=== PATIENT | female | born 1960 | race Caucasian/White ===

== ENCOUNTER 2020-04-01 10:33 | Emergency (ER) | payer MEDICARE, MEDICAID, SELFPAY ==
[2020-04-01 10:48] VITALS: BP 147/74; PULSE 79; RESP 20; TEMP 36.8; O2SAT 100
--- NOTE | 2020-04-01 11:09 | ED.FEMALEGU ---
HPI - Female Genitourinary General Chief complaint: Urogenital-Female Stated complaint: Urinating Blood Time Seen by Provider: 04/01/20 11:02 Source: patient and RN notes reviewed Mode of arrival: ambulatory Limitations: no limitations History of Present Illness HPI Narrative: Patient presents today complaining of hematuria, lower abdominal pressure, mild dysuria and urinary frequency since this morning. No symptoms yesterday. She has tried no roam-hek-jhwwmcz interventions prior to arrival. Denies any recent antibiotic use. Denies flank pain, nausea, vomiting, diarrhea, fever. Related Data Home Medications Medication Instructions Recorded Confirmed albuterol sulfate [Ventolin HFA] 2 inh INHALATION DIRECTED 04/01/20 04/01/20 famotidine 40 mg PO DAILY 04/01/20 04/01/20 ucdynysqmfn-rlymxcopj-gkwcfcej 1 inh INHALATION DAILY 04/01/20 04/01/20 [Trelegy Ellipta] valsartan-hydrochlorothiazide 1 tablet PO DAILY 04/01/20 04/01/20 Allergies Allergy/AdvReac Type Severity Reaction Status Date / Time morphine Allergy Mild Other Verified 04/01/20 10:35 aspirin Allergy Unknown RASH Verified 03/07/17 16:02 BETWEEN FINGERS Review of Systems Review of Systems: Narrative: CONSTITUTIONAL: Denies body aches, fever, chills, or sweats. EYES: Denies visual changes, redness, or discharge. ENT: Denies rhinorrhea, congestion, sore throat, or otalgia. CARDIOVASCULAR: Denies chest pain, palpitations, or edema. RESPIRATORY: Denies cough or dyspnea. GASTROINTESTINAL: Denies abdominal pain, nausea, vomiting, or diarrhea. GENITOURINARY: + Hematuria, mild dysuria, frequency, lower abdominal pressure SKIN: Denies rash, itching, or wounds. MUSCULOSKELETAL: Denies back pain, joint pain, or myalgia. NEUROLOGIC: Denies headache, numbness, tingling, or weakness. PSYCH: Denies depression or anxiety. [facility] Past Medical History Medical History (Updated 04/01/20 @ 11:12 by Lenore Perry, SURTASS ANALYST, ) COPD (chronic obstructive pulmonary disease) GERD (gastroesophageal reflux disease) Comments At time of signature, I have reviewed and agree with nursing past medical, surgical, social and family history unless otherwise noted. Please see nursing chart for further information. There is no relevant family history pertinent to the presenting complaint Exam Narrative: Exam Narrative: GENERAL: Well-appearing, well-nourished, and in no acute distress. HEAD: Normocephalic, atraumatic. EYES: EOMI. No redness or drainage. Conjunctivae normal. ENT: Mucous membranes pink and moist. NECK: Normal AROM. CHEST: No respiratory distress. Clear to auscultation. HEART: Regular rate and rhythm. No murmur appreciated. Normal peripheral pulses. ABDOMEN: Soft, nontender, nondistended, normal active bowel sounds. -CVAT MUSCULOSKELETAL: No bony tenderness. EXTREMITIES: Normal range of motion. No edema. SKIN: Warm, dry, no rash. Capillary refill normal. Normal skin turgor. NEURO: No focal deficits. Alert and oriented x3. Gait steady. PSYCH: Normal affect. No signs of depression or anxiety. Course Vital Signs Vital signs: Vital Signs Temperature 98.2 F 04/01/20 10:48 Pulse Rate 79 04/01/20 10:48 Respiratory Rate 20 04/01/20 10:48 Blood Pressure 147/74 H 04/01/20 10:48 Pulse Oximetry 100 04/01/20 10:48 Temperature 98.2 F 04/01/20 10:48 Pulse Rate 79 04/01/20 10:48 Respiratory Rate 20 04/01/20 10:48 Blood Pressure 147/74 H 04/01/20 10:48 Pulse Oximetry 100 04/01/20 10:48 Reviewed. Pt has been instructed to follow up with her PCP regarding her elevated blood pressure today. MDM - Female Genitourinary Differential Diagnosis Differential diagnosis: Likely urinary tract infection, cystitis and other (Pyelonephritis, interstitial cystitis, kidney stone) Lab Data Attestation: I reviewed the patient's lab results. Labs: Urine Glucose Negative Refer
== END 2020-04-01 11:14 | disposition home or self-care (01) ==
PROVIDERS: Emergency Provider Nurse Practitioner
DX: N30.01 Acute cystitis with hematuria (principal); J44.9 Chronic obstructive pulmonary disease, unspecified; K21.9 Gastro-esophageal reflux disease without esophagitis
CPT/HCPCS: 81003; 87086; 87088; 99213; G0463

== ENCOUNTER 2022-02-28 08:36 | Observation (INO) | payer MEDICARE, MEDICAID, SELFPAY ==
[2022-02-28] VITALS (27 sets, daily range): BP systolic 102–136; BP diastolic 50–79; PULSE 71–98; RESP 14–24; TEMP 36.2–36.9; O2SAT 81–100; BMI 31.0
--- NOTE | ~2022-02-28 | CT_ITS ---
EXAMINATION: CT abdomen pelvis w con DATE: 02/28/2022 11:40 INDICATION: Right lower quadrant abdominal pain and tenderness TECHNIQUE: Computed tomography (CT) of the abdomen and pelvis was performed with 100 mL Omnipaque-350 intravenous contrast. Automated exposure control and iterative reconstruction technique were employe d. The dose-length product was 688.81 mGy-cm. COMPARISON: None FINDINGS: Lung bases are clear. Heart size is normal. No pericardial or pleural effusion. Cholecystectomy clips the gallbladder fossa. Several small cysts in the left hepatic lobe measuring up to 1.5 cm . Spleen, pancreas and bilateral adrenal glands are normal. Bilateral renal cysts, the largest on the left birgit suring 2.5 cm . Subtle haziness to the fat surrounding the mildly dilated appendix which measures up to 11 mm diameter with edematous-appearing wall thickening consistent with acute appendicitis. Single diverticulum along the descending colon without adjacent inflammatory change to suggest diverticulit is. No bowel obstruction. Bladder, anteverted uterus and lateral adnexa are unremarkable. No abscess or free intraperitoneal gas or fluid. No pathologically enlarged abdominal or pelvic lymphadenopathy. Small fat-containing umbilical hernia. Mild thoracic and lumbar spondylosis. Moderate bilateral hip osteoarthritis. IMPRESSION: 1. Radiographically uncomplicated acute appendicitis. Dr. Escalera discussed these findings with Dr. Huerta at 11:55 AM. Reviewed, dictated and finalized at location B. IMPRESSION: 1. Radiographically uncomplicated acute appendicitis. Dr. Escalera discussed th benito findings with Dr. Huerta at 11:55 AM.
--- NOTE | ~2022-02-28 | XR_ITS ---
EXAMINATION: XR chest 2V DATE: 02/28/2022 15:17 INDICATION: Chronic obstructive pulmonary disease. TECHNIQUE: Frontal and lateral views of the chest were obtained. COMPARISON: Chest 2 views 03/07/2017, CT abdomen and pelvis 02/28/2022 FINDINGS: The chest demonstrates clear lungs without pneumonia, pleural effusion, or pneumothorax. Th e heart size is normal. Surgical clips in the right upper quadrant are likely from cholecystectomy. IMPRESSION: 1. No acute cardiopulmonary disease. Reviewed, dictated and finalized at location A.
--- NOTE | 2022-02-28 09:45 | ED.ABDPAIN ---
HPI - Abdominal Pain General Chief Complaint: Abdominal Pain Stated Complaint: abd pain Time Seen by Provider: 02/28/22 08:49 History of Present Illness HPI narrative: 61-year-old female presented to the emergency department for evaluation of persistent right lower abdominal pain. Patient states over the weekend she was having some issues with constipation. Patient states on Thursday or Thursday she began passing stool again but states that she is still having some lower abdominal pain. Patient states that the pain is slowly improving but is still persistent. Patient called her primary care physician and she was instructed to present to the emergency department for evaluation. Patient denies any pain with urination. Patient does have previous surgical history of hernia repair, and ovarian cyst removal. Patient denies any prior history of small bowel obstruction. Patient did have COVID about 7 weeks ago and has had multiple issues with constipation since. Patient has no prior history of [place]. patient does have history of COPD and hypertension. Patient does take Plavix. Patient states she is no longer taking antibiotics. Patient had an oxygen requirement for short period time after her COVID diagnosis. Patient is not on home oxygen at this time. Related Data Home Medications Medication Instructions Recorded Confirmed albuterol sulfate 90 mcg/actuation 2 inh inhalation DIRECTED 04/01/20 04/01/20 aerosol inhaler (Ventolin HFA) famotidine 40 mg tablet 40 mg PO DAILY 04/01/20 04/01/20 fluticasone fur. 100 mcg-umeclid 1 inh inhalation DAILY 04/01/20 04/01/20 62.5 mcg-vilant 25 mcg inhalat.powder (Trelegy Ellipta) valsartan 80 1 tablet PO DAILY 04/01/20 04/01/20 mg-hydrochlorothiazide 12.5 mg tablet Allergies Allergy/AdvReac Type Severity Reaction Status Date / Time morphine Allergy Mild Other Verified 04/01/20 10:35 aspirin Allergy Unknown RASH Verified 03/07/17 16:02 BETWEEN FINGERS Review of Systems Review of Systems: CONSTITUTIONAL: Denies fever, chills, or sweats. EYES: Denies visual changes, redness, or discharge. ENT: Denies rhinorrhea, congestion, sore throat, or otalgia. CARDIOVASCULAR: Denies chest pain, palpitations, or edema. RESPIRATORY: Denies cough or dyspnea. GASTROINTESTINAL: Right lower quadrant abdominal pain, see HPI GENITOURINARY: Denies dysuria or hematuria. SKIN: Denies rash or itching. MUSCULOSKELETAL: Denies back pain, joint pain, or myalgia. NEUROLOGIC: Denies headache, numbness, or weakness. 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 HEAD: normocephalic, atraumatic. EYES: PERRLA/EOMI, conjunctivae clear. NOSE: Normal no drainage NECK: Supple. No adenopathy, no masses. RESPIRATORY: Airway patent, respirations nonlabored. Clear to auscultation bilaterally, no rales, rhonchi, wheezing. CARDIOVASCULAR: Regular rate and rhythm without murmurs rubs or gallops. ABDOMINAL: Right lower quadrant tenderness to palpation MUSCULOSKELETAL: Moves all extremities. Strength/ROM intact, No edema, No calf tenderness. NEURO: Alert. Cranial nerves II through XII intac
[2022-02-28 10:40] LABS: Basophils Absolute Auto 0.1 K/mm3 (0.0-0.1); Basophils Percent Auto 0.5 % (0.2-1.2); Eosinophils Absolute Auto 0.2 K/mm3 (0-0.3); Eosinophils Percent Auto 2.2 % (0-4.4); Hematocrit 34.4 % (37.0-47.0); Hemoglobin 11.3 g/dL (12.0-15.0); Immature Granulocyte Absolute 0.06 K/mm3 (0.00-0.031); Immature Granulocyte Percent A 0.5 % (0-0.5); Lymphocytes Absolute Auto 1.53 K/mm3 (0.9-3.2); Lymphocytes Percent Auto 13.8 % (18.3-44.2); Mean Corpuscular HGB Conc 32.8 g/dl (32-36); Mean Corpuscular Hemoglobin 31.4 pg (26-34); Mean Corpuscular Volume 95.6 fl (80-100); Mean Platelet Volume 9.6 fl (7.4-10.4); Monocytes Absolute Auto 0.9 K/mm3 (0.1-0.6); Monocytes Percent Auto 7.9 % (2.6-8.5); Neutrophils Absolute Auto 8.3 K/mm3 (1.3-6.7); Neutrophils Percent Auto 75.1 % (45.5-73.1); Platelet Count Result 362 k/mm3 (150-375); Red Cell Distribution Width 14.4 % (11.5-14.5); White Blood Count 11.1 K/mm3 (4.5-10.0)
[2022-02-28 10:50] LABS: Lactic Acid Reflex 0.8 mmol/L (0.7-2.0)
[2022-02-28 10:51] LABS: Alanine Aminotransferase 21 U/L (6-35); Albumin Level 3.8 g/dL (3.5-5.1); Alkaline Phosphatase 115 U/L (38-126); Anion Gap 10 mmol/L (8-16); Aspartate Amino Transferase 26 U/L (14-36); Bilirubin,Total 0.3 mg/dL (0.2-1.3); Blood Urea Nitrogen 18 mg/dL (7-17); Carbon Dioxide 27 mmol/L (22-30); Chloride 99 mmol/L (98-107); Estimated CRCL calculation 53 ml/min; Estimated Glomerular Filt Rate 56; Glucose 97 mg/dL (65-110); Lipase 52 U/L (23-300); Potassium 4.1 mmol/L (3.4-5.0); Sodium 136 mmol/L (137-145)
[2022-02-28 13:05] LABS: Add Urine Microscopic? YES; Appearance Urine Clear (Clear); Bacteria Urine Trace /hpf; Bilirubin Urine Negative (Negative); Blood Urine 1+ (Negative); Color Urine Yellow (Yellow); Glucose Urine UA Negative (Negative); Ketones Urine Negative (Negative); Leukocyte Esterase Ur Negative LEU/UL (Negative); Mucus Urine Rare /lpf; Nitrate Urine Negative (Negative); Protein Urine Negative (Negative); RBC Urine 0-2 /hpf (0-2); Specific Grav Ur 1.009 (1.001-1.035); Squamous Epithelial Cell Urine Occasional /hpf (Few); Urobilinogen Urine Negative mg/dL (<2.0); WBC Urine 0-3 /hpf
--- NOTE | 2022-02-28 14:13 | ECG_ITS ---
Measurements Intervals [place] Rate: 72 P: 148 ID: 131 QRS: 14 QRSD: 134 T: 94 QT: 382 QTc: 421 Interpretive Statements SINUS RHYTHM BASELINE ARTIFACT RIGHT BUNDLE BRANCH BLOCK NONSPECIFIC ST ABNORMALITY ABNORMAL ECG NO PREVIOUS ECG AVAILABLE FOR COMPARISON Electronically Signed On 03-01-2022 15:05:40 CDT by Nicholas Hanna M.D.
--- NOTE | 2022-02-28 14:21 | PM.IMHP ---
H&P: HPI History of Present Illness Date/Time: 02/28/22 14:21 Chief Complaint: right lower quadrant abdominal pain Narrative: this patient is a pleasant 61-year-old white female who has a history of smoking, COPD on inhalers, coronary artery disease on Plavix, and mild hypertension. She has had a slow onset of lower abdominal pain. She has had on and off problems with constipation ever since she had COVID about 7 weeks ago. Because she was continued to have some lower abdominal pain even after having several days of normal bowel movements over the last 3 days she called her primary care physician. After hearing her symptoms they asked her to go to the emergency room and she was evaluated in our emergency room today by Dr. Huerta. Because of some tenderness in the right lower quadrant CT scan was done. This revealed acute uncomplicated appendicitis. Also noted was a very small umbilical hernia (which I cannot feel on exam). Also some liver and kidney cysts. See plan below. Review of Systems Review of Systems: All systems reviewed & are unremarkable except as noted in HPI and below (HPI) Constitutional: Constitutional: Reports as per HPI, Denies chills and Denies fever(s) Eyes: Eyes: Reports no additional eye complaints ENT: Reports Normal hearing present and Denies dizziness Cardiovascular: Cardiovascular: Reports no additional cardiovascular complaints, Denies chest pain and Denies irregular heart rhythm Comments: patient has a history of mild hypertension well controlled on the valsartan hydrochlorothiazide. Patient apparently has seen a back feeder plywood layup line at the [facility] in [place] and was started on Plavix about 2 years ago after having an evaluation possibly a chest her cardiac CT that showed some plaque at [facility]. Respiratory: Respiratory: Reports no additional respiratory complaints and Reports cough ( Patient has a chronic cough associated with her COPD. ) Comments: Patient is still smoking about 6 cigarettes per day. Gastrointestinal: Gastrointestinal: Reports no additional gastrointestinal complaints, Denies abdominal pain and Denies bloating Comments: her cough may be a little bit worse since she had COVID 7 weeks ago. Patient typically uses trilogy and took it this morning. She also has 2 p.r.n. inhalers 1 is I think an albuterol inhaler at home and then also another rescue inhaler that she uses p.r.n. Genitourinary: Genitourinary: Denies hematuria Comments: History of UR tract infection 2 years ago but it has not been on any antibiotic recently for that and is not having any urinary tract symptoms at the current time. Musculoskeletal: Musculoskeletal: Denies back pain Integumentary/Breasts: Skin/Breast: Reports system reviewed and no additional complaints, except as docu Neurologic: Reports Normal hearing present, Denies Abnormal speech present, Denies confusion and Denies dizziness Psychiatric: Psychiatric: Reports no additional psychiatric complaints and Denies confusion Endocrine: Endocrine: Reports no additional endocrine complaints Hematologic/Lymphatic: Hematologic/Lymphatic: Denies easy bleeding and Denies easy bruising Allergic/Immunologic: Allergic/Immunologic: Reports no additional allergic/immunologic complaints [facility] Past Medical History Medical History COPD (chronic obstructive pulmonary disease) COPD (chronic obstructive pulmonary disease) GERD (gastroesophageal reflux disease) Hypertension Smoker unmotivated to quit Surgical History Surgical History (Updated 02/28/22 @ 14:29 by Tapan Willson MD) History of section in the History of ovarian cystectomy open Pfannenstiel incision for this in the Hx of cholecystectomy open in 1987 Social History Social History (Updated 02/28/22 @ 14:30 by Tapan Willson MD) Social History: 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
--- NOTE | 2022-02-28 14:52 | PM.IMHP ---
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 100 mcg-umeclid 1 inh inhalation DAILY 04/01/20 04/01/20 History 62.5 mcg-vilant 25 mcg inhalat.powder (Trelegy Ellipta) nitrofurantoin 100 mg PO Q12H 7 days #14 caps 04/01/20 Rx monohydrate/macrocrystals 100 mg capsule (Macrobid) valsartan 80 1 tablet PO DAILY 04/01/20 04/01/20 History mg-hydrochlorothiazide 12.5 mg tablet Allergies Allergy/AdvReac Type Severity Reaction Status Date / Time morphine Allergy Mild Other Verified 04/01/20 10:35 aspirin Allergy Unknown RASH Verified 03/07/17 16:02 BETWEEN FINGERS Vital Signs Vital Signs - 24 hr 02/28/22 08:58 02/28/22 08:58 02/28/22 08:59 Temperature 36.7 C Pulse Rate 71 Respiratory Rate 14 Blood Pressure 102/68 116/53 L Pulse Oximetry 100 100 100 02/28/22 09:00 02/28/22 09:15 02/28/22 09:16 Temperature Pulse Rate Respiratory Rate Blood Pressure 108/79 Pulse Oximetry 100 99 99 02/28/22 09:17 02/28/22 09:30 02/28/22 09:32 Temperature Pulse Rate Respiratory Rate Blood Pressure 115/50 L Pulse Oximetry 99 98 99 02/28/22 09:45 02/28/22 09:47 02/28/22 10:01 Temperature Pulse Rate Respiratory Rate Blood Pressure 110/57 L Pulse Oximetry 100 100 81 L 02/28/22 10:15 02/28/22 10:30 02/28/22 10:45 Temperature Pulse Rate Respiratory Rate Blood Pressure Pulse Oximetry 95 99 100 02/28/22 11:00 02/28/22 11:15 02/28/22 11:44 Temperature Pulse Rate Respiratory Rate Blood Pressure Pulse Oximetry 96 100 100 02/28/22 11:45 Temperature Pulse Rate 84 Respiratory Rate Blood Pressure 127/66 Pulse Oximetry 100 H&P: Results Labs Labs: Short CBC 02/28/22 Range/Units 10:32 WBC 11.1 H (4.5-10.0) K/mm3 Hgb 11.3 L (12.0-15.0) g/dL Hct 34.4 L (37.0-47.0) % Plt Count 362 (150-375) k/mm3 BMP 02/28/22 10:32 Sodium 136 L Potassium 4.1 Chloride 99 Carbon Dioxide 27 BUN 18 H Creatinine 1.00 Glucose 97 Calcium 9.0 Liver Function 02/28/22 Range/Units 10:32 Total Bilirubin 0.3 (0.2-1.3) mg/dL AST 26 (14-36) U/L ALT 21 (6-35) U/L Alkaline Phosphatase 115 (38-126) U/L Albumin 3.8 (3.5-5.1) g/dL Urine 02/28/22 Range/Units 12:45 Urine Color Yellow (Yellow) Urine Appearance Clear (Clear) Urine pH 5.0 (5.0-9.0) Ur Specific [place] 1.009 (1.001-1.035) Urine Protein Negative (Negative) mg/dL Urine Glucose (UA) Negative (Negative) mg/dL
--- NOTE | 2022-02-28 15:01 | PM.IMCN ---
Assessment and Plan Assessment and plan (1) Acute appendicitis: Code(s): K35.80 - Unspecified acute appendicitis Status: Acute Assessment and Plan: -The patient was admitted to surgery. -Her white count was noted to be 11.1 - the patient was started on Zosyn. - the patient is minimally tender - due to her COPD the patient may be at high risk for surgery. - monitor white blood count. - analgesics as prescribed by surgery. She is currently on fentanyl, Warrior, and Tylenol. Please do not give more than 4 g of Tylenol a day. DVT prophylaxis per surgery. The patient is on Lovenox. - (2) COPD (chronic obstructive pulmonary disease): Code(s): J44.9 - Chronic obstructive pulmonary disease, unspecified Status: Acute Assessment and Plan: - I held her p.r.n. albuterol and will continue with DuoNebs since she is wheezing. - continue Trelegy (3) Hypertension: Code(s): I10 - Essential (primary) hypertension Status: Acute Assessment and Plan: - I am going to hold off on her hydrochlorothiazide at this time her blood pressure is soft - will do p.r.n. hydralazine. -Her Diovan has been reordered please monitor blood pressure closely and hold for map is less than 60. (4) Hyperlipidemia: Code(s): E78.5 - Hyperlipidemia, unspecified Status: Acute Assessment and Plan: - -atorvastatin held at this time. Plan Possible coronary artery disease without any coronary stents. The patient had been on atorvastatin aspirin and Plavix. For possible plaque buildup. Those have been placed on hold at this time. HPI Data of Consult Consult date: 02/28/22 Requesting Physician: Dr. Willson Primary Care Provider: UNKNOWN,DOCTOR Consult Narrative Narrative: Princess Bauman is a 61 year old female who came to the emergency room with complaint of right lower quadrant abdominal pain. She had a slow onset of this discomfort. Since she has had COVID 7 weeks ago she has had problems with constipation. The patient thought that her abdominal pain was due to her constipation. However after having several normal bowel movement she still continued to have the right lower quadrant pain. Over the last 3 days she has been trying to get a hold of her primary care doctor. After her primary care doctor heard her symptoms she was then sent to the emergency room. The patient did have tenderness to the right lower quadrant and a CT scan was performed. The CT scan shows a radiographically uncomplicated acute appendicitis. Surgery has been called and has already seen the patient. The hospitalist group has been consulted for medical management. Her white count 11.1. H&H is 11.3 and 34.4. Neutrophil percentage is 75.1. Sodium was 136. Chest x-ray was read as no acute cardiopulmonary disease. The patient was started on IV fluids and Zosyn. The patient was only mildly uncomfortable when I saw her in the emergency room. The hospitalist group is consulted on this patient on the date of service of 02/28/2022. Review of Systems Review of Systems: See HPI All systems reviewed & are unremarkable except as noted in HPI and below Constitutional: Constitutional: Reports as per HPI and Reports no additional constitutional complaints Eyes: Eyes: Reports as per HPI and Reports no additional eye complaints ENT: Reports system reviewed and no additional complaints, except as documented and Reports Normal hearing present Cardiovascular: Cardiovascular: Reports no additional cardiovascular complaints Respiratory: Respiratory: Reports no additional respiratory complaints and Reports no additional respiratory complaints Gastrointestinal: Gastrointestinal: Reports as per HPI and Reports no additional gastrointestinal complaints Musculoskeletal: Musculoskeletal: Reports no additional musculoskeletal complaints Integumentary/Breasts: Skin/Breast: Reports system reviewed and no additional complaint
--- NOTE | 2022-02-28 17:04 | ADMGEN ---
This patient, Princess Bauman, was admitted to 3 [facility] Surg Room 320-01 at 1655. Patient/family oriented to hospital policies and general routines including ID bracelet, bed and alarms, visiting hours, pain management, procedures, bathroom and other care routines, personal items, smoking policy, room service/diet, and visiting hours. Information on how to activate the Rapid Response Team has been discussed. Patient/Family are encouraged to report perceived risks to care and to ask questions if they do not understand what they are told or what they should do.
[2022-02-28] MEDS: SODIUM CHLORIDE 0.9% IV 1,000 ML 75 ML IV CONT (17:23)
[2022-02-28] MEDS: DOCUSATE SODIUM 100 MG CAPSULE PO (17:23)
[2022-02-28] MEDS: ALBUTEROL SULFATE NEB 2.5 MG/3 ML INH INHALATION (20:07)
[2022-02-28] MEDS: IPRATROPIUM BR 0.02% INH SOLN 0.5 MG/2.5 ML VIAL INHALATION (20:07)
[2022-02-28] MEDS: ACETAMINOPHEN 325 MG TABLET 650 MG PO (20:33)
[2022-02-28] MEDS: FAMOTIDINE 20 MG TABLET PO (20:34)
[2022-03-01 04:49] VITALS: BP 103/46; PULSE 71; RESP 20; TEMP 36.4; O2SAT 93
[2022-03-01] MEDS: SODIUM CHLORIDE 0.9% IV 1,000 ML 75 ML IV CONT (05:37)
[2022-03-01] MEDS: DOCUSATE SODIUM 100 MG CAPSULE PO (08:15)
[2022-03-01] MEDS: FAMOTIDINE 20 MG TABLET PO (08:15)
[2022-03-01] MEDS: IPRATROPIUM BR 0.02% INH SOLN 0.5 MG/2.5 ML VIAL INHALATION (08:15)
[2022-03-01] MEDS: ENOXAPARIN 40 MG/0.4 ML SYRINGE SUB-Q (08:15)
[2022-03-01] MEDS: ALBUTEROL SULFATE NEB 2.5 MG/3 ML INH INHALATION (08:15)
[2022-03-01] MEDS: VALSARTAN 80 MG TABLET PO (08:15)
[2022-03-01 08:17] VITALS: PULSE 66; RESP 16; O2SAT 94
[2022-03-01] MEDS: FLUTICASONE/UMECLIDIN/VILANTER 100-62.5-25 MCG ELLIPTA 1 PUFF INHALATION (08:17)
[2022-03-01 08:26] VITALS: PULSE 76; RESP 16
--- NOTE | 2022-03-01 09:04 | PM.IMPN ---
Progress Note: A&P Assessment and Plan (1) Acute appendicitis: Code(s): K35.80 - Unspecified acute appendicitis Status: Acute Assessment and Plan: CT of the abd/pel Radiographically uncomplicated acute appendicitis.? General surgery as attending Continue Zosyn WBC controlled at this time Pain medications on board Zofran for nausea GS to manage Currently on clear liquids DVT per surgery, currently on lovenox (2) COPD (chronic obstructive pulmonary disease): Code(s): J44.9 - Chronic obstructive pulmonary disease, unspecified Status: Acute Assessment and Plan: Currently on DuoNeb, DC Atrovent and continue Albuterol Not in acute exacerbation No supplemental oxygen Trend respiratory status Adjust therapy as indicated Continue Trelegy (3) Hypertension: Code(s): I10 - Essential (primary) hypertension Status: Acute Assessment and Plan: BP is 103/46 Continue home medications at this time trend BP Adjust therapy as indicated (4) Hyperlipidemia: Code(s): E78.5 - Hyperlipidemia, unspecified Status: Acute Assessment and Plan: - -atorvastatin can be restarted Plan Possible coronary artery disease without any coronary stents. The patient had been on atorvastatin aspirin and Plavix. For possible plaque buildup. Those have been placed on hold at this time. Time Spent With Patient Time with patient: Greater than 35 minutes Subjective Date/time seen: 03/01/22 09:04 Interval history: 03/01/22 0900 Patient is sitting on the side of the bed. She is wanting to go home. She stated that she is excited about going. She denies any chest pain, more shortness of breath than normal, nausea, vomiting, diarrhea, constipation, weakness or fatigue. Consult date: 02/28/22 Princses Bauman is a 61 year old female who came to the emergency room with complaint of right lower quadrant abdominal pain.? She had a slow onset of this discomfort.? Since she has had COVID 7 weeks ago she has had problems with constipation.? The patient thought that her abdominal pain was due to her constipation.? However after having several normal bowel movement she still continued to have the right lower quadrant pain.? Over the last 3 days she has been trying to get a hold of her primary care doctor.? After her primary care doctor heard her symptoms she was then sent to the emergency room.? The patient did have tenderness to the right lower quadrant and a CT scan was performed.? The CT scan shows a radiographically uncomplicated acute appendicitis.? Surgery has been called and has already seen the patient.? The hospitalist group has been consulted for medical management.? Her white count 11.1.? H&H is 11.3 and 34.4.? Neutrophil percentage is 75.1.? Sodium was 136.? Chest x-ray was read as no acute cardiopulmonary disease.? The patient was started on IV fluids and Zosyn.? The patient was only mildly uncomfortable when I saw her in the emergency room.? The hospitalist group is consulted on this patient on the date of service of 02/28/2022. Review of Systems Review of Systems: All systems reviewed & are unremarkable except as noted in HPI and below Exam Const: General: cooperative, healthy appearing, comfortable, no acute distress, well developed, alert, awake, Physically active, average body habitus and well nourished Nutritional Appearance: average body habitus and well nourished Orientation/consciousness: oriented to person, oriented to place, oriented to time and patient oriented x3 Limitations: no limitations HENMT: Head: normal to inspection, No palpable skull fracture present, normocephalic, atraumatic and abrasion Ears: hearing grossly normal bilaterally, external ears normal and TM's normal bilaterally Face/Nose/Sinus: Normal external nose present, Normal nares present and No nasal polyps prese
[2022-03-01] MEDS: ASPIRIN 81 MG ENTERIC TABLET PO (10:00)
[2022-03-01] MEDS: CLOPIDOGREL BISULFATE 75 MG TABLET PO (10:00)
[2022-03-01] MEDS: ATORVASTATIN 40 MG TABLET PO (10:00)
--- NOTE | 2022-03-01 10:02 | PM.PNGS ---
Progress Note: A&P Assessment and Plan (1) Acute appendicitis, uncomplicated: Code(s): K35.80 - Unspecified acute appendicitis Status: Acute Assessment and Plan: Patient seems to be improving well on IV antibiotics. Will plan to give another dose at noon and then consider discharge on oral antibiotics most likely Augmentin. We will then plan to see the patient in follow-up in the office on about 7-10 days. Duration of antibiotic therapy will be approximately 7-10 days total. (2) Smoker unmotivated to quit: Code(s): F17.200 - Nicotine dependence, unspecified, uncomplicated Status: Acute Assessment and Plan: Encouraged patient to at least cut her smoking in half during the course of her antibiotic therapy for treatment of appendicitis. Subjective Subjective Date/Time Seen: 03/01/22 10:02 Patient is sitting on the bedside when I entered the room. She denies much abdominal pain today. Not had a bowel movement overnight. Breathing is slightly better with nebulizer treatments. Review of Systems Review of Systems: All systems reviewed & are unremarkable except as noted in HPI and below Constitutional: Constitutional: Reports as per HPI, Denies chills and Denies fever(s) Cardiovascular: Cardiovascular: Denies chest pain and Denies dyspnea Respiratory: Respiratory: Reports no additional respiratory complaints and Denies dyspnea Comments: Less wheezing today on auscultation. Still has a cough. Gastrointestinal: Gastrointestinal: Reports as per HPI and Denies bloating Comments: States she feels her abdomen is about back to normal but still a little achy pain low in the abdomen. Musculoskeletal: Musculoskeletal: Reports no additional musculoskeletal complaints Neurologic: Denies memory loss Psychiatric: Psychiatric: Denies anxiety and Denies memory loss Exam Const: General: cooperative, comfortable, alert and awake Orientation/consciousness: patient oriented x3 HENMT: Head: normal to inspection Mouth: Yes moist mucous membranes Eyes: Sclera: sclerae normal Pupils: Equal, round and reactive pupils present Neck: Neck: normal visual inspection and no JVD Chest: Chest palpation & inspection: normal inspection of the chest Resp: Effort & Inspection: normal respiratory effort Cardio: Jugular venous distension: no JVD Rate: regular rate GI: Inspection: normal to inspection, scar (Right upper quadrant and suprapubic) and no visible herniation Auscultation: normal bowel sounds Other: Less tenderness on palpation today. Neuro: General: patient oriented x3 Cranial nerves: Yes Equal, round and reactive pupils present Objective Data Vital Signs Vital Signs: Vital Signs - 24 hr 02/28/22 10:15 02/28/22 10:30 02/28/22 10:45 Temperature Pulse Rate Respiratory Rate Blood Pressure Pulse Oximetry 95 99 100 Oxygen Delivery 02/28/22 11:00 02/28/22 11:15 02/28/22 11:44 Temperature Pulse Rate Respiratory Rate Blood Pressure Pulse Oximetry 96 100 100 Oxygen Delivery 02/28/22 11:45 02/28/22 13:23 02/28/22 14:04 Temperature Pulse Rate 84 Respiratory Rate Blood Pressure 127/66 Pulse Oximetry 100 99 99 Oxygen Delivery 02/28/22 15:24 02/28/22 15:30 02/28/22 15:45 Temperature Pulse Rate Respiratory Rate Blood Pressure Pulse Oximetry 100 100 98 Oxygen Delivery 02/28/22 17:15 02/28/22 16:55 02/28/22 20:09 Temperature 36.2 C L Pulse Rate 87 98 Respiratory Rate 24 H 14 Blood Pressure 127/58 L Pulse Oximetry 99 Oxygen Delivery Room Air 02/28/22 20:10 02/28/22 21:25 03/01/22 04:49 Temperature 36.9 C 36.4 C L Pulse Rate 98 76 71 Respiratory Rate 14 24 H 20 Blood Pressure 136/55 L 103/46 L Pulse Oximetry 97 97 93 Oxygen Delivery Room Air 03/01/22 08:17 03/01/22 08:17 03/01/22 08:26 Temperature Pulse Rate 66 76 Respiratory Rate 16 16 Blood Pressure Pulse Oxim
[2022-03-01 11:11] LABS: Basophils Absolute Auto 0.1 K/mm3 (0.0-0.1); Basophils Percent Auto 0.6 % (0.2-1.2); Eosinophils Absolute Auto 0.1 K/mm3 (0-0.3); Eosinophils Percent Auto 1.8 % (0-4.4); Hematocrit 31.6 % (37.0-47.0); Hemoglobin 10.4 g/dL (12.0-15.0); Immature Granulocyte Absolute 0.05 K/mm3 (0.00-0.031); Immature Granulocyte Percent A 0.6 % (0-0.5); Lymphocytes Absolute Auto 1.07 K/mm3 (0.9-3.2); Lymphocytes Percent Auto 13.8 % (18.3-44.2); Mean Corpuscular HGB Conc 32.9 g/dl (32-36); Mean Corpuscular Hemoglobin 30.7 pg (26-34); Mean Corpuscular Volume 93.2 fl (80-100); Mean Platelet Volume 10.1 fl (7.4-10.4); Monocytes Absolute Auto 0.6 K/mm3 (0.1-0.6); Monocytes Percent Auto 7.2 % (2.6-8.5); Neutrophils Absolute Auto 5.9 K/mm3 (1.3-6.7); Platelet Count Result 420 k/mm3 (150-375); Red Blood Count 3.39 M/mm3 (4.2-5.4); Red Cell Distribution Width 14.4 % (11.5-14.5); White Blood Count 7.8 K/mm3 (4.5-10.0)
[2022-03-01 11:34] LABS: Alanine Aminotransferase 20 U/L (6-35); Albumin Level 3.6 g/dL (3.5-5.1); Alkaline Phosphatase 112 U/L (38-126); Anion Gap 7 mmol/L (8-16); Anion Gap 9 mmol/L (8-16); Aspartate Amino Transferase 27 U/L (14-36); Bilirubin,Total 0.5 mg/dL (0.2-1.3); Blood Urea Nitrogen 12 mg/dL (7-17); Calcium 8.6 mg/dL (8.4-10.2); Calcium 8.7 mg/dL (8.4-10.2); Carbon Dioxide 25 mmol/L (22-30); Carbon Dioxide 26 mmol/L (22-30); Chloride 101 mmol/L (98-107); Estimated CRCL calculation 53 ml/min; Estimated Glomerular Filt Rate 56; Glucose 105 mg/dL (65-110); Glucose 107 mg/dL (65-110); Magnesium 1.6 mg/dL (1.6-2.3); Sodium 134 mmol/L (137-145); Sodium 135 mmol/L (137-145)
--- NOTE | 2022-03-01 12:45 | PM.DS ---
DS: Admitting Diagnosis Discharge Date 03/01/22 1245 Admitting Diagnosis Acute appendicitis DS: Discharge Diagnosis Discharge Diagnosis (1) Acute appendicitis: Code(s): K35.80 - Unspecified acute appendicitis Status: Acute Assessment and Plan: CT of the abd/pel Radiographically uncomplicated acute appendicitis.? General surgery as attending Continue Zosyn WBC controlled at this time Pain medications on board Zofran for nausea GS to manage Currently on clear liquids DVT per surgery, currently on lovenox (2) COPD (chronic obstructive pulmonary disease): Code(s): J44.9 - Chronic obstructive pulmonary disease, unspecified Status: Acute Assessment and Plan: Currently on DuoNeb, DC Atrovent and continue Albuterol Not in acute exacerbation No supplemental oxygen Trend respiratory status Adjust therapy as indicated Continue Trelegy (3) Hypertension: Code(s): I10 - Essential (primary) hypertension Status: Acute Assessment and Plan: BP is 103/46 Continue home medications at this time trend BP Adjust therapy as indicated (4) Hyperlipidemia: Code(s): E78.5 - Hyperlipidemia, unspecified Status: Acute Assessment and Plan: - -atorvastatin can be restarted Plan Possible coronary artery disease without any coronary stents. The patient had been on atorvastatin aspirin and Plavix. For possible plaque buildup. Those have been placed on hold at this time. DS: Summary Hospital Course Hospital Course: Patient is a 61-year-old female with a past medical history of COPD, coronary artery disease and hypertension who presented to the ED with lower abdominal pain. Patient had COVID about 7 weeks ago and has had on and off problems with constipation ever since. She went to follow-up with her primary care provider and she was directed to come to the emergency room. CT scan was performed and showed acute uncomplicated appendicitis and a very small hernia. Patient was offered both surgical and nonsurgical options of treatment. Patient has opted for nonsurgical treatment at this time. Patient was started on IV Zosyn for 24 hours and will go home on Augmentin. Upon arrival white blood cell count was 11.1 is now currently 7.8. Patient has been placed on a regular diet has been able to tolerate regular foods. Patient does have COPD however it did not seem to be if in exacerbation at this time patient was continued on her home inhalers and neb treatments was added due to the patient having some wheezing upon arrival. Blood pressures have been on trend however patient has not shown any need for change at this time. Education about smoking cessation has been provided by the surgeon and hospitalist. Patient motivated to quit at this time. Currently patient is doing well and is stable for discharge for labs and vital signs. Patient will need to follow up with General surgery and is aware that she needs to call for further appointment scheduling. Patient has verbalized understanding of all instructions and is stable for discharge at this time. Time spent discussing smoking cessation with patient: more than 10 minutes Status at Discharge Functional status at discharge: independent ambulation Overall status at discharge: patient is progressing back to baseline Time Spent with Patient Time attestation: Total time spent providing and/or coordinating discharge services: 38 minutes Time spent: Greater than 30 minutes Specific discharge activities: Diagnostic testing, chart review, developing a treatment plan, education, care coordination documentation, physical exam, result review Exam Const: General: cooperative, healthy appearing, comfortable, no acute distress, well developed, alert, awake, Physically active, average body habitus and well nourished Nutritional Appearance: average body habitus
== END 2022-03-01 13:30 | disposition home or self-care (01) ==
LOC: ANHED 15:17 → ANH3MEDSUR 16:40
PROVIDERS: Nurse Practitioner; Admitting Provider Surgery; Emergency Provider Emergency Medicine; Visit Provider Surgery
DX: K35.80 Unspecified acute appendicitis (principal); I10 Essential (primary) hypertension; J44.9 Chronic obstructive pulmonary disease, unspecified; E78.5 Hyperlipidemia, unspecified; K21.9 Gastro-esophageal reflux disease without esophagitis; F17.210 Nicotine dependence, cigarettes, uncomplicated; Z79.02 Long term (current) use of antithrombotics/antiplatelets; Z79.51 Long term (current) use of inhaled steroids; Z86.16 Personal history of COVID-19
CPT/HCPCS: 36415; 71046; 74177; 80048; 80053; 81001; 83605; 83690; 83735; 85025; 93005; 94640; 96361; 96365; 96366; 96372; 99285; A9270; G0378; J1650; J2543; J7030; Q9967

== ENCOUNTER 2022-03-06 19:49 | Emergency (ER) | payer MEDICARE, MEDICAID, SELFPAY ==
[2022-03-06] VITALS (25 sets, daily range): BP systolic 122–149; BP diastolic 59–82; PULSE 68–96; RESP 16–29; TEMP 36.2; O2SAT 97–100
--- NOTE | ~2022-03-06 | CT_ITS ---
EXAMINATION: CT abdomen pelvis w con DATE: 03/07/2022 00:05 INDICATION: Right lower quadrant abdominal pain TECHNIQUE: Computed tomography (CT) of the abdomen and pelvis was performed with 100 mL Omnipaque-350 intravenous contrast. Automated exposure control and iterative reconstruction technique were employe d. The dose-length product was 849.58 mGy-cm. COMPARISON: 02/28/2022 FINDINGS: Minimal atelectasis at the lingula and right middle lobe. Heart size is normal. No pericardial or ple ural effusion. There are few cysts measuring up to 1 cm in the left hepatic lobe. Mild focal hepatic steatosis along the ligamentum teres. Cholecystectomy clips the gallbladder fossa. Pancreas, spleen, right kidney and bilateral adrenal glands are normal. 2.4 cm exophytic cyst at the upper pole of the left kidney. The previously mildly dilated appendix with some periappendiceal inflammatory stranding now appears normal with resolution of the prior inflammatory stranding. No bowel wall thickening or o bstruction. Liquid stool throughout the colon consistent with diarrhea. No inflammatory stranding cassidy rounding a diverticulum at the descending colon. Small fat-containing umbilical hernia. Bladder is no rmal. Uterus and bilateral adnexa are unremarkable. No free intraperitoneal gas or fluid. No patholog ically enlarged abdominal or pelvic lymphadenopathy. There is calcified atherosclerosis of the aorta and bilateral renal and iliac arteries. Chondrocalcinosis and mild to moderate osteoarthritis at the bilateral hips. IMPRESSION: 1. Fluid throughout the colon consistent with nonspecific diarrhea. No other acute intra-abdominal/pe lvic process with resolution of prior acute appendicitis. Reviewed, dictated and finalized at location A. IMPRESSION: 1. Fluid throughout the colon consistent with nonspecific diarrhea. No other ac bailee intra-abdominal/pelvic process with resolution of prior acute appendicitis.
--- NOTE | ~2022-03-06 | XR_ITS ---
EXAMINATION: XR chest 2V DATE: 03/06/2022 20:36 INDICATION: Dyspnea. TECHNIQUE: Frontal and lateral views of the chest were obtained. COMPARISON: Chest 2 views 02/28/2022 FINDINGS: The chest demonstrates clear lungs without pneumonia, pleural effusion, or pneumothorax. Th e heart size is normal. There are surgical clips in the abdomen. IMPRESSION: 1. No acute cardiopulmonary disease. Reviewed, dictated and finalized at location A.
--- NOTE | 2022-03-06 19:54 | ECG_ITS ---
Measurements Intervals [place] Rate: 82 P: 73 W[place]: 139 QRS: 9 QRSD: 129 T: 40 QT: 361 QTc: 424 Interpretive Statements SINUS RHYTHM WITH OCCASIONAL SUPRAVENTRICULAR PREMATURE COMPLEXES POSSIBLE LEFT ATRIAL ENLARGEMENT [-0.1mV P WAVE IN V1/V2] RIGHT BUNDLE BRANCH BLOCK [120+ ms QRS DURATION, UPRIGHT V1, 40+ ms S IN I/aVL/V4/V5/V6] COMPARED TO ECG 02/28/2022 16:25:06 NO SIGNIFICANT CHANGES Electronically Signed On 03-07-2022 13:55:52 CDT by Cayetano Singer M.D.
[2022-03-06 20:17] LABS: Basophils Absolute Auto 0.1 K/mm3 (0.0-0.1); Basophils Percent Auto 0.4 % (0.2-1.2); Eosinophils Absolute Auto 0.3 K/mm3 (0-0.3); Eosinophils Percent Auto 1.9 % (0-4.4); Hematocrit 34.8 % (37.0-47.0); Hemoglobin 11.5 g/dL (12.0-15.0); Immature Granulocyte Absolute 0.09 K/mm3 (0.00-0.031); Immature Granulocyte Percent A 0.7 % (0-0.5); Lymphocytes Absolute Auto 3.05 K/mm3 (0.9-3.2); Lymphocytes Percent Auto 23.1 % (18.3-44.2); Mean Corpuscular Hemoglobin 31.5 pg (26-34); Mean Corpuscular Volume 95.3 fl (80-100); Mean Platelet Volume 9.2 fl (7.4-10.4); Monocytes Percent Auto 7.7 % (2.6-8.5); Neutrophils Absolute Auto 8.7 K/mm3 (1.3-6.7); Neutrophils Percent Auto 66.2 % (45.5-73.1); Platelet Count Result 501 k/mm3 (150-375); Red Blood Count 3.65 M/mm3 (4.2-5.4); White Blood Count 13.2 K/mm3 (4.5-10.0)
[2022-03-06 20:26] LABS: Alanine Aminotransferase 25 U/L (6-35); Albumin Level 4.1 g/dL (3.5-5.1); Alkaline Phosphatase 102 U/L (38-126); Anion Gap 11 mmol/L (8-16); Aspartate Amino Transferase 34 U/L (14-36); Bilirubin,Total 0.4 mg/dL (0.2-1.3); Blood Urea Nitrogen 16 mg/dL (7-17); Calcium 9.1 mg/dL (8.4-10.2); Carbon Dioxide 28 mmol/L (22-30); Chloride 100 mmol/L (98-107); Estimated CRCL calculation 48 ml/min; Estimated Glomerular Filt Rate 50; Glucose 99 mg/dL (65-110); Potassium 3.4 mmol/L (3.4-5.0); Sodium 139 mmol/L (137-145)
--- NOTE | 2022-03-06 21:13 | ED.CHESTPAIN ---
HPI - Chest Pain General Chief Complaint: Shortness of Breath/Dyspnea Stated Complaint: dyspnea/appendix removed Time Seen by Provider: 03/06/22 20:20 History of Present Illness HPI narrative: This is a 61-year-old female with past medical history of COPD coronary artery disease, return emergency department complaining of chest pressure after taking medications. She states she was here approximately 1 week ago for with abdominal pain, diagnosed with appendicitis and started on antibiotic regimen. Patient states approximately 1 hour after taking her antibiotics she feels chest pressure, rated 6 out of 10, lasting approximately an hour and a half, with full resolution, not associated with any diaphoresis or nausea. She states she has not felt this sensation any other time including with physical exertion. She states this is occurred every time she has taken her antibiotic. She complains of intermittent right lower quadrant abdominal pain, 6 out of 10 with movement, 2 out of 10 with rest. She states she has chronic wheezing but no new or worsening shortness of breath. Related Data Home Medications Medication Instructions Recorded Confirmed albuterol sulfate 90 mcg/actuation 2 inh inhalation DIRECTED PRN 04/01/20 02/28/22 aerosol inhaler (Ventolin HFA) sob famotidine 40 mg tablet 40 mg PO DAILY PRN Acid Reflux 04/01/20 02/28/22 fluticasone fur. 100 mcg-umeclid 1 inh inhalation DAILY 04/01/20 02/28/22 62.5 mcg-vilant 25 mcg inhalat.powder (Trelegy Ellipta) valsartan 80 1 tablet PO DAILY 04/01/20 02/28/22 mg-hydrochlorothiazide 12.5 mg tablet aspirin 81 mg tablet,delayed 81 mg PO DAILY 02/28/22 02/28/22 release atorvastatin 40 mg tablet 40 mg PO DAILY 02/28/22 02/28/22 clopidogrel 75 mg tablet 75 mg PO DAILY 02/28/22 02/28/22 Allergies Allergy/AdvReac Type Severity Reaction Status Date / Time morphine Allergy Mild Other Verified 03/06/22 20:39 aspirin Allergy Unknown RASH Verified 03/06/22 20:39 BETWEEN FINGERS Review of Systems Review of Systems: CONSTITUTIONAL: Denies fever, chills, or sweats. EYES: Denies visual changes, redness, or discharge. ENT: Denies rhinorrhea, congestion, sore throat, or otalgia. CARDIOVASCULAR: Chest pressure denies palpitations, or edema. RESPIRATORY: Denies cough or dyspnea. GASTROINTESTINAL: Right lower quadrant abdominal pain denies nausea, vomiting, or diarrhea. GENITOURINARY: Denies dysuria or hematuria. SKIN: Denies rash or itching. MUSCULOSKELETAL: Denies back pain, joint pain, or myalgia. NEUROLOGIC: Denies headache, numbness, dizziness, or weakness. PSYCHIATRIC: Denies anxiety or depression. [facility] [place] Past Medical History Medical History COPD (chronic obstructive pulmonary disease) GERD (gastroesophageal reflux disease) Hyperlipidemia Hypertension Smoker unmotivated to quit Surgical History Surgical History H/O hernia repair History of section in the History of mandibular surgery History of ovarian cystectomy open Pfannenstiel incision for this in the Hx of cholecystectomy open in 1987 Family History Family History Unknown Unknown family medical history Social History Social History Social History: The patient smokes 5-6 cigarettes a day. She denies any alcohol. She is with 2 kids. Her children are the durable power criminal attorney for healthcare. The patient Retired from being a legal assist. Code status full code Years smoked: 45 Smoking status: Current every day smoker Tobacco type: cigarettes Additional smoking assessment comments: smokes about 6 cigarettes per day Alcohol intake: never Substance use: never Spiritual care concerns: No Exam Narrative: GENERAL: Well-appearing, well-nourished, and in no acute distress. HEAD: N
--- NOTE | 2022-03-06 22:21 | PC.NURSE ---
Called lab regarding Troponin. Was informed by Jovany in lab chemistry is behind and it will take 17 mins to run Troponin Dr Murillo notified.
[2022-03-06 22:43] LABS: Troponin I < 0.012 ng/mL (0.000-0.034)
[2022-03-06 23:34] LABS: Troponin I < 0.012 ng/mL (0.000-0.034)
[2022-03-07] MEDS: ALBUTEROL SULFATE NEB 2.5 MG/3 ML INH 5 MG INHALATION (00:16)
[2022-03-07 00:21] VITALS: PULSE 114; RESP 29
[2022-03-07 00:40] VITALS: PULSE 98; RESP 26
[2022-03-07 01:09] VITALS: BP 138/73; PULSE 98; RESP 22; O2SAT 99
== END 2022-03-07 01:09 | disposition home or self-care (01) ==
PROVIDERS: Emergency Medicine; Emergency Provider Preventive Medicine Aerospace Medicine; PCP Registered Nurse
DX: K20.80 Other esophagitis without bleeding (principal); R07.89 Other chest pain; T36.0X5A Adverse effect of penicillins, initial encounter; K37 Unspecified appendicitis; J44.9 Chronic obstructive pulmonary disease, unspecified; I25.10 Atherosclerotic heart disease of native coronary artery without angina pectoris; E78.5 Hyperlipidemia, unspecified; I10 Essential (primary) hypertension; K21.9 Gastro-esophageal reflux disease without esophagitis; I49.1 Atrial premature depolarization; I45.10 Unspecified right bundle-branch block; R94.31 Abnormal electrocardiogram [ECG] [EKG]; F17.210 Nicotine dependence, cigarettes, uncomplicated
CPT/HCPCS: 36415; 71046; 74177; 80053; 84484; 85025; 93005; 94640; 99284; Q9967

== ENCOUNTER 2023-04-03 11:44 | Emergency (ER) | payer MEDICARE, MEDICAID, SELFPAY ==
[2023-04-03 11:56] VITALS: BP 123/63; PULSE 72; RESP 16; TEMP 37; O2SAT 97
--- NOTE | 2023-04-03 12:14 | ED.ABDPAIN ---
HPI - Abdominal Pain General Chief Complaint: Unspecified Stated Complaint: right side pain Time Seen by Provider: 04/03/23 12:14 Source: patient, RN notes reviewed and old records reviewed Mode of arrival: ambulatory Limitations: no limitations History of Present Illness HPI narrative: 62-year-old female presents to the [facility] with complaints of right upper quadrant, right lower rib pain since the 20 of March, 14 days. Patient denies any nausea vomiting. Denies any fevers. States the pain has been intermittent. Patient originally requesting an x-ray to find out what is going on in her abdomen. Discussed with patient that the x-ray we would look for broken ribs or pneumonia. Patient denies any coughing, fevers. X-rays would not show pulled muscle or soft tissue such as has abdomen issues. Patient does not have a gallbladder. Patient was denying any pain until she put her jacket on. States that she felt a ?pull? in the abdomen. No erythema, ecchymosis. No rashes noted. No swelling. Unable to reproduce pain with palpation Patient denies any urinary symptoms. Related Data Home Medications Medication Instructions Recorded Confirmed albuterol sulfate 90 mcg/actuation 2 inh inhalation DIRECTED PRN 04/01/20 03/11/22 aerosol inhaler (Ventolin HFA) sob famotidine 40 mg tablet 40 mg PO DAILY PRN Acid Reflux 04/01/20 03/11/22 fluticasone fur. 100 mcg-umeclid 1 inh inhalation DAILY 04/01/20 03/11/22 62.5 mcg-vilant 25 mcg inhalat.powder (Trelegy Ellipta) valsartan 80 1 tablet PO DAILY 04/01/20 03/11/22 mg-hydrochlorothiazide 12.5 mg tablet aspirin 81 mg tablet,delayed 81 mg PO DAILY 02/28/22 03/11/22 release atorvastatin 40 mg tablet 40 mg PO DAILY 02/28/22 03/11/22 clopidogrel 75 mg tablet 75 mg PO DAILY 02/28/22 03/11/22 Allergies Allergy/AdvReac Type Severity Reaction Status Date / Time morphine Allergy Mild Other Verified 04/03/23 11:47 aspirin Allergy Unknown RASH Verified 04/03/23 11:47 BETWEEN FINGERS Review of Systems Review of Systems: All systems reviewed & are unremarkable except as noted in HPI and below Constitutional: Constitutional: Reports no additional constitutional complaints Eyes: Eyes: Reports no additional eye complaints ENT: Reports system reviewed and no additional complaints, except as documented Cardiovascular: Cardiovascular: Reports no additional cardiovascular complaints, Denies chest pain and Denies dyspnea Respiratory: Respiratory: Reports no additional respiratory complaints, Denies chest congestion, Denies cough and Denies dyspnea Gastrointestinal: Gastrointestinal: Reports as per HPI, Reports abdominal pain, Denies nausea and Denies vomiting Musculoskeletal: Musculoskeletal: Reports no additional musculoskeletal complaints Integumentary/Breasts: Skin/Breast: Reports system reviewed and no additional complaints, except as docu Neurologic: Reports system reviewed and no additional complaints, except as documented Psychiatric: Psychiatric: Reports no additional psychiatric complaints Allergic/Immunologic: Allergic/Immunologic: Reports no additional allergic/immunologic complaints PMFSH Past Medical History Medical History COPD (chronic obstructive pulmonary disease) GERD (gastroesophageal reflux disease) Hyperlipidemia Hypertension Smoker unmotivated to quit Surgical History Surgical History H/O hernia repair History of section in the History of mandibular surgery History of ovarian cystectomy open Pfannenstiel incision for this in the Hx of cholecystectomy open in 1987 Family History Family History Unknown Unknown family medical history Social History Social History Social History: The patient smokes 5-6 cigarettes a day. She denies any alcoho
== END 2023-04-03 12:40 | disposition home or self-care (01) ==
PROVIDERS: Emergency Provider Nurse Practitioner; PCP Registered Nurse
DX: R10.11 Right upper quadrant pain (principal); F17.210 Nicotine dependence, cigarettes, uncomplicated; J44.9 Chronic obstructive pulmonary disease, unspecified; K21.9 Gastro-esophageal reflux disease without esophagitis; E78.5 Hyperlipidemia, unspecified; I10 Essential (primary) hypertension; Z79.82 Long term (current) use of aspirin
CPT/HCPCS: 99211; G0463